=== PATIENT | male | born 2000 | race African-American/Black ===

== ENCOUNTER 2021-05-28 09:00 | Emergency (ER) | payer SELFPAY ==
[~2021-05-28] VITALS: Ht 177.8 cm; Wt 82.0 kg
[2021-05-28] MEDS ORDERED: KETOROLAC 60MG/2ML VIAL IM STA (09:33)
[2021-05-28 09:54] LABS: BASOPHILS % 0.7 % (0.0-2.0); EOSINOPHILS % 0.8 % (0.0-5.0); HEMATOCRIT. 44.7 % (42.0-52.0); HEMOGLOBIN. 15.8 g/dL (14.0-18.0); LYMPHOCYTES % 21.4 % (20.0-50.0); MEAN CORPUSCULAR VOLUME 87.5 fL (80.0-94.0); MEAN PLATELET VOLUME 7.6 fl (7.4-10.4); MONOCYTES % 5.5 % (2.0-8.0); NEUTROPHILS % 71.6 % (40.0-76.0); PLATELET 263 x1000/uL (130-400); RED BLOOD CELL COUNT 5.11 mill/uL (4.7-6.1); RED CELL DISTRIBUTION WIDTH 12.6 % (11.6-14.6)
[2021-05-28 10:08] LABS: CHLORIDE 106 mEq/L (98-107)
[2021-05-28 10:13] LABS: ETHANOL BLOOD < 10 mg/dL
[2021-05-28 11:17] VITALS: BP 123/76
== END 2021-05-28 11:18 | disposition home or self-care (01) ==
LOC: ER 09:00
DX: R51.9 Headache, unspecified (principal)
CPT/HCPCS: 36415; 80053; 80320; 85025; 96372; 99283; J1885; G0480

== ENCOUNTER 2021-05-28 12:54 | Emergency (ER) | payer MEDICAID ==
[~2021-05-28] VITALS: Ht 180.3 cm; Wt 86.0 kg
[2021-05-28 13:02] VITALS: BP 127/88
== END 2021-05-28 14:22 | disposition left against medical advice (07) ==
LOC: ER 12:54
DX: R30.0 Dysuria (principal); R51.9 Headache, unspecified
CPT/HCPCS: 99281